=== PATIENT | male | born 2000 | race Hispanic/Latino ===

== ENCOUNTER 2021-01-03 20:08 | Emergency (ER) | payer SELFPAY ==
[2021-01-03] MEDS ORDERED: KETOROLAC TROMETHAMINE 60 MG/2 ML VIAL ONE (20:32)
[2021-01-03 21:20] LABS: APPEARANCE,URINE Clear (CLEAR); BILIRUBIN,URINE Negative (NEGATIVE); COLOR,URINE Yellow (YELLOW); GLUCOSE, URINE (UA) Negative (NEGATIVE); KETONES,URINE Negative (NEGATIVE); LEUKOCYTE ESTERASE ,URINE Negative (NEGATIVE); NITRATE,URINE Negative (NEGATIVE); OCCULT BLOOD,URINE Negative (NEGATIVE); PH,URINE 6.5 (5.0-8.0); PROTEIN,URINE Negative (NEGATIVE); UROBILINOGEN,URINE 0.2 mg/dL (0.2-1.0)
[2021-01-05 17:08] LABS: CHLAMYDIA DNA N.A.AMPLIFY Negative (Negative)
== END 2021-01-03 22:19 | disposition home or self-care (01) ==
LOC: EDH 20:08
DX: N50.82 Scrotal pain (principal); R03.0 Elevated blood-pressure reading, without diagnosis of hypertension; N50.812 Left testicular pain; Z88.0 Allergy status to penicillin
CPT/HCPCS: 76870; 81003; 87486; 87797; 96372; 99284; J1885